=== PATIENT | female | born 1980 | race Caucasian/White ===

== ENCOUNTER 2016-11-15 17:43 | Emergency (ER) | payer OTHER ==
[~2016-11-15] VITALS: Ht 177.8 cm; Wt 63.5 kg
[2016-11-15 18:33] VITALS: BP 115/79
[2016-11-15] MEDS ORDERED: NAPR500T1 PO (18:37)
[2016-11-15] MEDS ORDERED: DIAZ5TAB7 PO (18:37)
--- NOTE | 2016-11-15 22:15 | NUR ---
Patient ambulated to bed 07.
--- NOTE | 2016-11-15 22:20 | NUR ---
Dr. Lerma evaluating patient at bedside.
--- NOTE | 2016-11-15 22:24 | NUR ---
C/O LEFT SIDE BODY ACHES FROM HEAD TO NECK TO BACK TO SHOULDER, C/O NAUSEA AND DIZZINESS. SKIN IS PINK/WARM/DRY; AAOX4 WITH EVEN AND STEADY GAIT; LUNGS CLEAR BL; HR EVEN AND REGULAR; PT DENIES ANY FEVER, CP, SOB, OR COUGH AT THIS TIME; PATIENT STATES PAIN OF 7/10 AT THIS TIME; VSS; PATIENT POSITIONED FOR COMFORT; HOB ELEVATED; BEDRAILS UP X2; BED DOWN. ER MD MADE AWARE OF PT STATUS.
--- NOTE | 2016-11-15 22:25 | NUR ---
DR ROLAND AT BEDSIDE
[2016-11-15] MEDS ORDERED: ONDANSETRON 4 MG ODT PO ONE (22:30)
[2016-11-15] MEDS ORDERED: MECLIZINE 25 MG TAB PO ONE (22:30)
[2016-11-15 23:16] VITALS: BP 110/89
--- NOTE | 2016-11-15 23:18 | NUR ---
Patient discharged with v/s stable. Written and verbal after care instructions given and explained. Patient alert, oriented and verbalized understanding of instructions. Ambulatory with steady gait. All questions addressed prior to discharge. ID band removed. Patient advised to follow up with PMD. Rx of MECLIZINE AND ZOFRAN given. Patient educated on indication of medication including possible reaction and side effects. Opportunity to ask questions provided and answered.
== END 2016-11-15 23:18 | disposition home or self-care (01) ==
LOC: MED 17:43
DX: F07.81 Postconcussional syndrome (principal)
CPT/HCPCS: 70450; 81025; 99284; J8597; S0119